=== PATIENT | female | born 1965 | race Caucasian/White ===

== ENCOUNTER 2020-02-25 12:15 | Emergency (ER) | payer OTHER ==
[~2020-02-25] VITALS: Ht 165.1 cm; Wt 63.5 kg
--- NOTE | 2020-02-25 12:15 | NUR ---
Patient ARNOLDO DE LA ROSA, triaged by RN. Waiting for an available bed on the ambulance [facility].
--- NOTE | 2020-02-25 13:41 | NUR ---
Patient transferred to bed 10B for further care. RN evaluating patient at bedside.
[2020-02-25 13:48] VITALS: BP 115/55
--- NOTE | 2020-02-25 13:51 | NUR ---
54 YEAR OLD FEMALE BIBA FROM [facility] FOR PAST COUPLE DAYS. PER EMS THEY WERE CALLED FOR BP OF 67/48, HR 105. UPON ARRIVAL, PT BP 75/36 HR 120. PT ALERT AND AWAKE, BREATHING EVEN AND UNLABORED, SKIN WARM AND DRY. BED IN LOWEST POSITION, LOCKED, BED RAIL UPX2. PMH - MENTAL DISABILITY, HTN, DM2 ALLERGIES - NKA
[2020-02-25] MEDS ORDERED: NACL 0.9% 0 ML IV STA (13:56)
[2020-02-25] MEDS ORDERED: BLOOD GLUCOSE MONITORING 1 DEV DEV FS STA (13:56)
--- NOTE | 2020-02-25 13:56 | NUR ---
54 YEAR OLD FEMALE BIBA FROM [facility] FOR PAST COUPLE DAYS. PER EMS THEY WERE CALLED FOR BP OF 67/48, HR 105. UPON ARRIVAL, PT BP 115/55 HR 120. PT ALERT AND AWAKE, BREATHING EVEN AND UNLABORED, SKIN WARM AND DRY. BED IN LOWEST POSITION, LOCKED, BED RAIL UPX2. PMH - MENTAL DISABILITY, HTN, DM2 ALLERGIES - NKA
[2020-02-25] MEDS ORDERED: LACTATED RINGERS 1,000 ML IV ONE (14:00)
[2020-02-25] MEDS ORDERED: LORazepam 2 MG/ML VIAL IVP ONE (14:00)
--- NOTE | 2020-02-25 15:00 | NUR ---
PT ALERT AND AWAKE, BREATHING EVEN AND UNLABORED
[2020-02-25] MEDS ORDERED: ZIPRASIDONE MESYLATE 20 MG/ML VIAL IM ONE ×2 (16:45→20:35)
[2020-02-25] MEDS ORDERED: WATER STERILE 10 ML MC ONE (16:52)
--- NOTE | 2020-02-25 18:00 | NUR ---
PT ALERT AND AWAKE, BREATHING EVEN AND UNLABORED
[2020-02-25 19:05] LABS: BASOPHILS % (AUTO) 0.2 % (0.0-2.0); EOSINOPHILS # (AUTO) 0.5 K/uL (0-0.4); EOSINOPHILS % (AUTO) 9.7 % (0.0-4.0); HEMATOCRIT 36.3 % (36-48); HEMOGLOBIN 12.2 g/dL (12.0-16.0); LYMPHOCYTES % (AUTO) 40.3 % (20.5-51.1); MEAN CORPUSCULAR HEMOGLOBIN 33 pg (27-31); MEAN CORPUSCULAR HGB CONC 34 g/dL (33-37); MEAN CORPUSCULAR VOLUME 99.6 fL (80-94); MONOCYTES # (AUTO) 0.4 K/uL (0.8-1.0); MONOCYTES % (AUTO) 8.1 % (1.7-9.3); NEUTROPHILS # (AUTO) 2.1 K/uL (1.8-7.7); NEUTROPHILS % (AUTO) 41.7 % (42.2-75.2); PLATELET COUNT (AUTO) 218 K/uL (140-450); RED BLOOD CELL COUNT(AUTO) 3.65 MIL/uL (4.20-5.40); WHITE BLOOD COUNT (AUTO) 4.9 K/uL (4.8-10.8)
[2020-02-25 19:17] LABS: ALBUMIN 3.5 g/dL (3.4-5.0); ANION GAP 12.2 (8-16); CARBON DIOXIDE 30.1 mmol/L (21-32); CREATININE 0.7 mg/dL (0.6-1.3); POTASSIUM 3.3 mmol/L (3.5-5.1); TOTAL BILIRUBIN 0.4 mg/dL (0.0-1.0)
--- NOTE | 2020-02-25 19:18 | NUR ---
REPORT GIVEN TO JENNIFER QUINTANA, TRANSFER OF CARE AT THIS TIME
--- NOTE | 2020-02-25 19:19 | NUR ---
Report received from LILIAN Aparicio for continuation of care.
[2020-02-25 20:11] LABS: APPEARANCE,URINE CLEAR (CLEAR); BILIRUBIN,URINE 1+ (NEGATIVE); BLOOD, URINE NEGATIVE (NEGATIVE); COLOR,URINE AMBER (YELLOW); LEUKOCYTE ESTERASE ,URINE NEGATIVE (NEGATIVE); NITRITE, URINE POSITIVE (NEGATIVE); UGLUCOSE TRACE (NEGATIVE)
[2020-02-25 20:16] LABS: RBC,URINE 0-5 /HPF (0-5)
--- NOTE | 2020-02-25 20:17 | NUR ---
Tried called [facility] to setup transportation, no response at this time.
--- NOTE | 2020-02-25 20:19 | NUR ---
Tried called [facility] to setup transportation, no response at this time.
--- NOTE | 2020-02-25 20:27 | NUR ---
Tried contacting 3rd contact information in patient's chart, Ranjit for transporation setup, no response at this time.
--- NOTE | 2020-02-25 20:30 | NUR ---
Pt unconsolible yelling , unable to reorient pt at this time. ERMD made aware of pt status.
--- NOTE | 2020-02-25 20:45 | NUR ---
Pt yelling and standing out of bed. Observed wet diaper & wet sheet. New diaper placed on pt and new sheet provided on bed. Pt placed back in bed. Pt continues to have uncontrollable yelling.
--- NOTE | 2020-02-25 23:50 | NUR ---
pt resting in bed , locked and in lowest position ,hob elevated, side rail x 2 for pt safey. VSS. no acute distress.
--- NOTE | 2020-02-26 02:00 | NUR ---
pt laying in bed playing w/ stuffed bear. No acute distress noted.
--- NOTE | 2020-02-26 02:55 | NUR ---
pt took off clothes and tried to leave room. Pt reoriented in room, new gown and blanket placed on pt. VSS. no acute distress noted.
--- NOTE | 2020-02-26 04:00 | NUR ---
Pt sitting in bed, locked and in lowest position, HOb elevated, side rail x 2 for pt safety. Pt heard talking to herself , playing w/ [employer] at this time.
--- NOTE | 2020-02-26 07:27 | NUR ---
Report provided to LILIAN Frank for transfer of care.
--- NOTE | 2020-02-26 07:43 | NUR ---
REPORT RECEIVED FROM FRED QUINTANA. PATIENT IS THRASHING AND SCREAMING IN BED D/T BEHAVIORAL ISSUES.
[2020-02-26] MEDS ORDERED: HALOPERIDOL IM 5 MG/ML VIAL IM ONE ×3 (07:55→18:50)
[2020-02-26] MEDS ORDERED: LORazepam 2 MG/ML VIAL IM/IVP ONE (09:30)
[2020-02-26] MEDS ORDERED: diphenhydrAMINE 50 MG/ML VIAL IM ONE ×2 (09:30→18:50)
--- NOTE | 2020-02-26 09:36 | NUR ---
Patient transferred to bed 13 for further care.
--- NOTE | 2020-02-26 09:39 | NUR ---
Dr. Levi, RT and RN at bedside for endotracheal intubation.
--- NOTE | 2020-02-26 10:46 | NUR ---
Patient yelling and not redirectable at this time. Awaiting transport back to facility.
--- NOTE | 2020-02-26 10:50 | NUR ---
Dr. Levi is evaluating the patient at bedside.
[2020-02-26] MEDS ORDERED: ZIPRASIDONE MESYLATE 20 MG/ML VIAL IM ONE ×2 (18:56→19:00)
--- NOTE | 2020-02-26 20:01 | NUR ---
AWAKE, CALLING OUT AND IS RESTLESS. PT IS AWAITING TRANSFER SHE IS DISCHARGED.
[2020-02-26] MEDS ORDERED: LORazepam 2 MG/ML VIAL IM ONE (20:15)
[2020-02-26] MEDS ORDERED: LORazepam 2 MG/ML VIAL IVP ONE (20:15)
[2020-02-26 20:21] VITALS: BP 134/88
--- NOTE | 2020-02-26 20:27 | NUR ---
CALLED KRISTY TEJADA S/W [facility] TO INFORM HIM THAT THE PT WOULD BE RETURNING NOW. PER [facility] PT NEEDS TO BE RETUNRED TO THE [facility]LLOW ZONE. TRANSPORT INFORMED.
--- NOTE | 2020-02-26 20:27 | NUR ---
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
--- NOTE | 2020-02-26 20:32 | NUR ---
Patient discharged with v/s stable TO [facility]IA [facility]. Written and verbal after care instructions given and explained. Ambulance Transport with to correction. All questions addressed prior to discharge. Advised to follow up with PMD.
== END 2020-02-26 20:32 ==
LOC: MED 12:15
DX: N39.0 Urinary tract infection, site not specified (principal); E87.6 Hypokalemia; R45.1 Restlessness and agitation; E11.9 Type 2 diabetes mellitus without complications; I10 Essential (primary) hypertension
CPT/HCPCS: 36415; 71045; 80053; 81001; 85025; 87086; 93005; 96361; 96372; 96374; 96376; 99285; J1200; J1630; J2060; J3486; J7030